=== PATIENT | female | born 1940 | race American Indian/Alaskan Native ===

== ENCOUNTER 2016-09-26 12:25 | Emergency (ER) | payer MEDICARE ==
[2016-09-26 12:30] VITALS: RESP 18; TEMP 98.4; O2SAT 98; BMI 27.4
--- NOTE | 2016-09-26 13:30 | ED PDOC ---
Arrival/HPI - General Chief Complaint: Lower Extremity Problem/Injury Time Seen by Provider: 09/26/16 12:31 Historian: Patient - History of Present Illness Narrative History of Present Illness (Text): 09/26/16 13:25 76 year old female presents to the emergency department with bilateral lower extremity pain for the past 2-3 months worsening in the left lower extremity over the past 2 weeks. Family states she is seeing an orthopedic surgeon and had an MRI of the knee last Thursday. She states pain goes up to the hip but reports history of arthritis in the hips. Patient reports she took Tylenol and Tramadol with no improvement. Family states she cannot walk due to pain. Denies trauma or injury. No other complaints. PMD: Dr. Wylie Orthopedic: Dr. Jose Britt ([facility]) Time/Duration: > week Symptom Onset: Gradual Symptom Course: Worsening Context: Home Associated Symptoms (Text): None Past Medical History - Provider Review Nursing Documentation Reviewed: Yes - Cardiac Hx Cardiac Disorders: Yes Hx Hypertension: Yes - Pulmonary Hx Respiratory Disorders: Yes Hx Asthma: Yes Hx Chronic Obstructive Pulmonary Disease (COPD): Yes Hx Sleep Apnea: Yes (C-PAP) - Neurological Hx Neurological Disorder: No - HEENT Hx HEENT Disorder: Yes Hx Cataracts: Yes - Renal Hx Renal Disorder: No - Endocrine/Metabolic Hx Endocrine Disorders: Yes Hx Diabetes Mellitus Type 2: Yes - Hematological/Oncological Hx Blood Disorders: Yes Hx Anemia: Yes Hx Blood Transfusions: No - Integumentary Hx Dermatological Disorder: No - Musculoskeletal/Rheumatological Hx Musculoskeletal Disorders: Yes Hx Arthritis: Yes Hx Osteoarthritis: Yes Hx Osteoporosis: Yes Other/Comment: HX: CARPAL TUNNEL -RIGHT WRIST. PT. FOR SURGERY 10/23/15-DX: LEFT SHOULDER ARTHRITIS - Gastrointestinal Hx Gastrointestinal Disorders: Yes Hx Gastritis: Yes Hx Gastroesophageal Reflux: Yes (SOMETIMES) - Genitourinary/Gynecological Hx Genitourinary Disorders: Yes - Psychiatric Hx Psychophysiologic Disorder: No Hx Emotional Abuse: No Hx Physical Abuse: No Hx Substance Use: No - Surgical History Hx Cataract Extraction: Yes (BILAT.) Hx Hysterectomy: Yes Hx Joint Replacement: Yes (LEFT KNEE) Hx Musculoskeletal Surgery: Yes (RIGHT CARPAL TUNNEL RELEASE) - Anesthesia Hx Anesthesia: Yes Hx Anesthesia Reactions: No Hx Malignant Hyperthermia: No - Suicidal Assessment Feels Threatened In Home Enviroment: No Family/Social History - Physician Review Nursing Documentation Reviewed: Yes Family/Social History: Unknown Family HX Smoking Status: Former Smoker Hx Alcohol Use: No Hx Substance Use: No Hx Substance Use Treatment: No Allergies/Home Meds Allergies/Adverse Reactions: Allergies No Known Allergies Allergy (Verified 09/26/16 12:37) Home Medications: Home Meds Medication Instructions Recorded Confirmed Ergocalciferol (Vitamin D2) 50,000 iu PO MON 01/12/13 09/26/16 [Vitamin D2] Glyburide/Metformin HCl 1 tab PO BID 01/12/13 09/26/16 [Glyburide-Metformin 2.5-500 mg] Mometasone Furoate [Asmanex] 2 puff IH HS 01/12/13 09/26/16 Montelukast Sodium 10 mg PO DAILY 01/12/13 09/26/16 Ipratropium/Albuterol Sulfate 1 puff IH QID 12/24/14 09/26/16 [Combivent Inhaler] Tiotropium [Spiriva] 18 mcg IH DAILY 12/24/14 09/26/16 Atorvastatin Calcium [Lipitor] 40 mg PO HS 10/16/15 09/26/16 Ferrous Sulfate [Feosol] 325 mg PO DAILY 10/16/15 09/26/16 Gabapentin [Neurontin] 300 mg PO BID 10/16/15 09/26/16 Omeprazole 20 mg PO DAILY 10/16/15 09/26/16 Tramadol HCl [Ultram] 50 mg PO BID PRN 10/16/15 09/26/16 amLODIPine [Norvasc] 2.5 mg PO DAILY 10/16/15 09/26/16 Ezetimibe [Zetia] 10 mg PO DAILY 09/26/16 09/26/16 Liraglutide [Victoza 3-Liam] 1.8 mg SC DAILY 09/26/16 09/26/16 Review of Systems - Physician Review All systems were reviewed & negative as marked: Yes - Review of Systems Respiratory: absent: SOB Gastrointestinal: absent: Nausea, Vomiting Genitourinary Female: absent: Dysuria, Urine Output Changes Musculoskeletal: Other (BLE pain, L>R) Physical Exam Vital Signs Reviewed: Yes Vital Signs Temp Pulse Resp BP Pulse Ox 09/26/16 15:37 107 H 18 162/75 H 98 09/26/16 12:30 98.4 F 97 H 18 155/73 H 98 Temperature: Afebrile Blood Pressure: Normal Pulse: Regular Respiratory Rate: Normal Appearance: Positive for: Well-Appearing, Non-Toxic, Comfortable Pain Distress: None Mental Status: Positive for: Alert and Oriented X 3 - Systems Exam Head: Present: Atraumatic, Normocephalic Pupils: Present: PERRL Extroacular Muscles: Present: EOMI Conjunctiva: Present: Normal Mouth: Present: Moist Mucous Membranes Neck: Present: Normal Range of Motion Respiratory/Chest: Present: Clear to Auscultation, Good Air Exchange. No: Respiratory Distress, Accessory Muscle Use Cardiovascular: Present: Regular Rate and Rhythm, Normal S1, S2. No: Murmurs Abdomen: Present: Normal Bowel Sounds. No: Tenderness, Distention, Peritoneal Signs Back: Present: Normal Inspection Upper Extremity: Present: Normal Inspection. No: Cyanosis, Edema Lower Extremity: Present: NORMAL PULSES, Other (Unable to lift leg leg due to pain. Good DP pulses.). No: Edema Neurological: Present: GCS=15, CN II-XII Intact, Speech Normal Skin: Present: Warm, Dry, Normal Color. No: Rashes Psychiatric: Present: Alert, Oriented x 3, Normal Insight, Normal Concentration Medical Decision Making ED Course and Treatment: 09/26/16 15:[address] Bhatti who also spoke with patient's family. Family states they are comfortable taking her home and will follow up on Thursday. Dr. Bhatti recommends small amount of Percocet. - Lab Interpretations Lab Results: 09/26/16 13:40 09/26/16 13:40 Lab Results 09/26/16 13:40: WBC 8.0 D, RBC 4.58, Hgb 11.5 L, Hct 33.1 L, MCV 72.3 L, MCH 25.1, MCHC 34.7, RDW 18.6 H, Plt Count 315, MPV 10.3, Gran % 64.0, Lymph % (Auto ) 29.4, Bee % (Auto) 4.6, Eos % (Auto) 1.5, Baso % (Auto) 0.5, Gran # 5.12, Lymph # 2.4, Bee # 0.4, Eos # 0.1, Baso # 0.04, PT 10.8, INR 1.00, APTT 24.8, Sodium 139, Potassium 4.7, Chloride 100, Carbon Dioxide 27, Anion Gap 17, BUN 27 H, Creatinine 1.0, Est GFR ( Amer) > 60, Est GFR (Non-Af Amer) 54, Random Glucose 273 H, Calcium 9.2, Total Bilirubin 0.6, AST 27, ALT 31, Alkaline Phosphatase 83, Total Protein 7.0, Albumin 3.6, Globulin 3.4, Albumin/ Globulin Ratio 1.1 - RAD Interpretation Radiology Orders: 09/26/16 12:53 DUPLEX LOWER EXTRM VEIN LEFT [US] Stat LOWER EXT ART NON-INV COMPL [US] Stat - Medication Orders Current Medication Orders: Discontinued Medications Ketorolac Tromethamine (Toradol) 10 mg IVP STAT STA Stop: 09/26/16 12:56 Last Admin: 09/26/16 13:38 Dose: 10 MG IVP Administration Document 09/26/16 13:38 [facility] (Rec: 09/26/16 13:40 [id number]) Charges for Administration # of IVP Administrations 1 - Scribe Statement The provider has reviewed the documentation as recorded by the Mariza Chaney Provider Scribe Attestation: All medical record entries made by the Nicholeibe were at my direction and personally dictated by me. I have reviewed the chart and agree that the record accurately reflects my personal performance of the history, physical exam, medical decision making, and the department course for this patient. I have also personally directed, reviewed, and agree with the discharge instructions and disposition. Disposition/Present on Arrival - Present on Arrival Any Indicators Present on Arrival: Yes History of DVT/PE: No History of Uncontrolled Diabetes: Yes Urinary Catheter: No History of Decub. Ulcer: No History Surgical Site Infection Following: None - Disposition Have Diagnosis and Disposition been Completed?: Yes Diagnosis: Leg pain Disposition: HOME/ ROUTINE Disposition Time: 15:38 Condition: STABLE Additional Instructions: Please follow up with your doctor on Thursday. Return to the ER for any worsening symptoms or for any other concerns. Prescriptions: oxyCODONE/Acetaminophen [Percocet 5/325 mg Tab] 1 ea PO Q6H PRN #10 tab PRN Reason: Pain, Severe (8-10) Referrals: Dinorah Parsons MD [Primary Care Provider] - Follow up with primary
[2016-09-26 13:47] LABS: ADD MANUAL DIFF? NO
[2016-09-26 13:53] LABS: BASO # 0.04 K/mm3 (0.0-2.0); BASO % 0.5 % (0.0-3.0); EOS # 0.1 (0.0-0.7); EOS % 1.5 % (1.5-5.0); GRAN # 5.12 (1.4-6.5); HEMATOCRIT 33.1 % (36.0-48.0); LYMPH # 2.4 (1.2-3.4); LYMPH % 29.4 % (22.0-35.0); MEAN CELL VOLUME 72.3 fL (80.0-105.0); MEAN CORPUSCULAR HEMOGLOBIN 25.1 pg (25.0-35.0); MEAN CORPUSCULAR HGB CONC 34.7 g/dl (31.0-37.0); MEAN PLATELET VOLUME 10.3 fl (7.0-11.0); MONO # 0.4 (0.1-0.6); MONO % 4.6 % (1.0-6.0); PLATELET COUNT 315 10^3/uL (120.0-450.0); RED CELL DISTRIBUTION WIDTH 18.6 % (11.5-14.5)
[2016-09-26 13:59] LABS: ALB/GLOB RATIO 1.1 (1.1-1.8); ALKALINE PHOSPHATASE 83 U/L (38-133); ALT/SGPT 31 U/L (7-56); AST/SGOT 27 U/L (15-39); BILIRUBIN,TOTAL 0.6 mg/dL (0.2-1.3); BLOOD UREA NITROGEN 27 mg/dL (7-21); CALCIUM 9.2 mg/dL (8.4-10.5); CARBON DIOXIDE 27 mmol/L (21-33); CHLORIDE 100 mmol/L (98-107); GFR AFRICAN-AMERICAN > 60; GLUCOSE,RANDOM 273 mg/dL (70-110); POTASSIUM 4.7 mmol/L (3.6-5.0); SODIUM 139 mmol/L (132-148)
[2016-09-26 14:06] LABS: PARTIAL THROMBOPLASTIN TIME 24.8 Seconds (23.7-30.8)
[2016-09-26 15:38] VITALS: BP 162/75; PULSE 107
--- NOTE | 2016-09-26 16:44 | US ---
HISTORY: Leg pain and swelling . PRIORS: None. FINDINGS: 2-D, color and duplex Doppler analysis of the lower extremity venous circulation using routine protocol from the femoral veins through the popliteal veins. Venous compressibility: Normal. Flow and augmentation patterns: Normal. Visualized veins upper third of calf: Normal. Lopez cyst: None. IMPRESSION: No sonographic or Doppler evidence for DVT in left lower extremity.
--- NOTE | 2016-09-26 17:49 | US ---
PROCEDURE: Lower extremity YUNI exam HISTORY: Peripheral vascular disease with pain and claudication. Diabetes. Previous smoker. PHYSICIAN(S): Maurice Doshi MD. FINDINGS: The resting YUNI's are normal: right, 1.0and left, 1.09. The brachial systolic pressures are symmetric. The high thigh pressures and waveforms are relatively normal. The calf PVR waveforms augment normally. No significant gradients are noted across the thighs. The ankle and metatarsal waveforms are relatively normal and symmetric. No significant pressure gradients are noted across the lower legs. IMPRESSION: 1. Normal YUNI and PVR examination at rest.
== END 2016-09-26 16:02 | disposition home or self-care (01) ==
LOC: ED 12:25
DX: M79.604 Pain in right leg (principal); M79.605 Pain in left leg; I10 Essential (primary) hypertension; E11.9 Type 2 diabetes mellitus without complications; Z87.891 Personal history of nicotine dependence
CPT/HCPCS: 80053; 85025; 85610; 85730; 93923; 93971; 96374; 99284; J1885